=== PATIENT | female | born 1955 | race Caucasian/White ===

== ENCOUNTER 2016-11-21 15:19 | Emergency (ER) | payer MEDICARE, OTHER ==
[~2016-11-21] VITALS: Ht 160 cm; Wt 108.9 kg
--- OUTSIDE RECORDS SUMMARY | ~2016-11-21 | XMS ---
Demographics + + + | Address | [address] | | | [place] [address] | + + + | Preferred Language | Unknown | + + + | Marital Status | Unknown | + + + | Yazdanism Affiliation | Unknown | + + + | Race | Unknown | + + + | Ethnic Group | Unknown | + + + Author + + + | Author | [facility] | + + + | Organization | [facility] | + + + | Address | [address] | | | [place] [address] | + + + | Phone | | + + + Care Team Providers + + + + | Care Inker Machine Name | Role | Phone | + + + + Unavailable | Unavailable | + + + + PROBLEMS +---------+ + + +--------+ + + | Type | Condition | ICD9-CM | EBD25-VT | Onset | Condition | SNOMED | | | | Code | Code | Dates | Status | Code | +---------+ + + +--------+ + + | Problem | MG | G70.00 | | | Active | [id number] | | | (myastheni | | | | | 9103 | | | a gravis) | | | | | | +---------+ + + +--------+ + + | Problem | Difficulty | R41.840 | | | Active | 936387839 | | | | | | | | | | | concentrat | | | | | | | | ing | | | | | | +---------+ + + +--------+ + + | Problem | Memory | R41.3 | | | Active | 24302244 | | | loss | | | | | | +---------+ + + +--------+ + + | Problem | Eustachian | H69.80 | | | Active | 42427035 | | | tube | | | | | | | | dysfunctio | | | | | | | | n | | | | | | +---------+ + + +--------+ + + | Problem | Pharyngiti | | J02.9 | | Active | 938875762 | | | s | | | | | | +---------+ + + +--------+ + + | Problem | Screening | Z13.89 | | | Active | 703871029 | | | for | | | | | | | | alcoholism | | | | | | +---------+ + + +--------+ + + | Problem | Migraine | G43.009 | | | Active | 199944927 | | | headache | | | | | | | | without | | | | | | | | aura | | | | | | +---------+ + + +--------+ + + | Problem | Otalgia of | H92.02 | | | Active | [id number] | | | left ear | | | | | 426691 | +---------+ + + +--------+ + + | Problem | Unspecifie | | F79 | | Active | 84616243 | | | d | | | | | | | | intellectu | | | | | | | | al | | | | | | | | disabiliti | | | | | | | | es | | | | | | +---------+ + + +--------+ + + | Problem | Osteopenia | | M85.80 | | Active | 91180228 | +---------+ + + +--------+ + + | Problem | HTN | | I10 | | Active | 67575770 | | | (hypertens | | | | | | | | ion) | | | | | | +---------+ + + +--------+ + + | Problem | Varicositi | I83.93 | | | Active | 07743748 | | | es of leg | | | | | | +---------+ + + +--------+ + + | Problem | Brain | G06.0 | | | Active | 526014508 | | | abscess | | | | | | +---------+ + + +--------+ + + | 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 | D49.7 | | | Active | 749357720 | | | tumor | | | | | | +---------+ + + +--------+ + + ALLERGIES + + + + +--------+ | Substance | Reaction | Event Type | Date | Status | + + + + +--------+ | Clindamycin | hives | Drug Allergy | Oct, | Active | + + + + +--------+ | Penicillin | anaphylaxis | Drug Allergy | Oct, | Active | + + + + +--------+ | Metoprolol | bradycardia | Drug Allergy | Oct, | Active | | Succinate | | | | | + + + + +--------+ | Diovan | Hives | Non Drug | Oct, | Active | | | | Allergy | | | + + + + +--------+ SOCIAL HISTORY No smoking Hx information available PLAN OF CARE + +---------+ | Activity | Details | + +---------+ +---+ | | +---+ + + + | Follow Up | prn Reason:null | + + + VITAL SIGNS + + + + | Height | 65 in | 2016-11-20 | + + + + | Weight | 249.0 lbs | 2016-11-20 | + + + + | BMI | 41.43 kg/m2 | 2016-11-20 | + + + + | Temperature | 97.9 degrees Fahrenheit | 2016-11-20 | + + + + | Heart Rate | 93 /min | 2016-11-20 | + + + + | Blood pressure systolic | 158 mm Hg | 2016-11-20 | + + + + | Blood pressure diastolic | 101 mm Hg | 2016-11-20 | + + + + MEDICATIONS + + + + + + + +--------+ | Medicati | Instruct | Dosage | Frequenc | Start | End Date | Duration | Status | | on | ions | | y | Date | | | | + + + + + + + +--------+ | Vitamin | Orally | 1 tablet | 24h | | | | Active | | D3 1000 | Once a | | | | | | | | UNIT | day | | | | | | | + + + + + + + +--------+ | Folic | Orally | 1 tablet | 24h | | | | Active | | Acid 1 | Once a | | | | | | | | MG | day | | | | | | | + + + + + + + +--------+ | Amitript | Orally | 1 tablet | | | | | Active | | yline | QD for | at | | | | | | | HCl 50 | Myasthen | bedtime | | | | | | | MG | ia | | | | | | | + + + + + + + +--------+ | Omeprazo | Orally | 1 | 24h | | | | Active | | le 40 MG | Once a | capsule | | | | | | | | day | | | | | | | + + + + + + + +--------+ | Levothyr | Orally | 1 tablet | 24h | | | | Active | | oxine | Once a | on an | | | | | | | Sodium | day | empty | | | | | | | 75 MCG | | stomach | | | | | | | | | in the | | | | | | | | | morning | | | | | | + + + + + + + +--------+ | Sumatrip | Orally | 1 tablet | 12h | | | | Active | | contreras | Twice a | as | | | | | | | Succinat | day | needed | | | | | | | e 50 MG | | | | | | | | + + + + + + + +--------+ | Calcium | Orally | 1 tablet | 24h | | | | Active | | 1200-100 | Once a | | | | | | | | 0 | day | | | | | | | | MG-UNIT | | | | | | | | + + + + + + + +--------+ | Vitamin | | | | | | | Active | | B12 3000 | | | | | | | | | MCG/ML | | | | | | | | + + + + + + + +--------+ | Lisinopr | Orally | 1 tablet | 24h | 23 July, | | 30 | Active | | il 5 MG | Once a | | | 2017 | | day(s) | | | | day | | | | | | | + + + + + + + +--------+ | Gabapent | Orally | 1 | | | | | Active | | in 600 | TID for | capsule | | | | | | | MG | chronic | | | | | | | | | back | | | | | | | | | pain due | | | | | | | | | to | | | | | | | | | compress | | | | | | | | | ion | | | | | | | | | fracture | | | | | | | | | s | | | | | | | + + + + + + + +--------+ | Azathiop | Orally | 4 | 24h | | | | Active | | rine 50 | Once a | tablets | | | | | | | MG | day | | | | | | | + + + + + + + +--------+ | Bactrim | Orally | 1 tablet | 12h | Oct, | 1 Sep, | 10 | Active | | DS | Twice a | | | 2017 | 2017 | day(s) | | | 800-160 | day | | | | | | | | MG | | | | | | | | + + + + + + + +--------+ | Amlodipi | Orally | 1 tablet | 24h | | | | Active | | ne | Once a | | | | | | | | Besylate | day | | | | | | | | 5 MG | | | | | | | | + + + + + + + +--------+ RESULTS No Results PROCEDURES + + + + + | Procedure | Date Ordered | Related Diagnosis | Body Site | + + + + + | Office Visit, Est | Nov 20, 2016 | | | | Pt., Level 3 | | | | + + + + + IMMUNIZATIONS No Known Immunizations"
--- OUTSIDE RECORDS SUMMARY | ~2016-11-21 | XMS ---
Demographics + + + | Address | [address] | | | [place] [address] | + + + | Preferred Language | Unknown | + + + | Marital Status | Unknown | + + + | Yazidism Affiliation | Unknown | + + + | Race | Unknown | + + + | Ethnic Group | Unknown | + + + Author + + + | Author | [facility] | + + + | Organization | [facility] | + + + | Address | [address] | | | [place] [address] | + + + | Phone | | + + + Care Team Providers + + + + | Care Beef Specialist Name | Role | Phone | + + + + Unavailable | Unavailable | + + + + PROBLEMS +---------+ + + +--------+ + + | Type | Condition | ICD9-CM | TOT68-GU | Onset | Condition | SNOMED | | | | Code | Code | Dates | Status | Code | +---------+ + + +--------+ + + | Problem | MG | G70.00 | | | Active | [id number] | | | (myastheni | | | | | 9103 | | | a gravis) | | | | | | +---------+ + + +--------+ + + | Problem | Difficulty | R41.840 | | | Active | 321403315 | | | | | | | | | | | concentrat | | | | | | | | ing | | | | | | +---------+ + + +--------+ + + | Problem | Memory | R41.3 | | | Active | 80227567 | | | loss | | | | | | +---------+ + + +--------+ + + | Problem | Brain | G06.0 | | | Active | 440774319 | | | abscess | | | | | | +---------+ + + +--------+ + + | Problem | HTN | | I10 | | Active | 13646669 | | | (hypertens | | | | | | | | ion) | | | | | | +---------+ + + +--------+ + + | Problem | Varicositi | I83.93 | | | Active | 28215059 | | | es of leg | | | | | | +---------+ + + +--------+ + + | 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 | 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 | | | Active | 994531699 | | | tumor | | | | | | +---------+ + + +--------+ + + | Problem | Eustachian | H69.80 | | | Active | 22176678 | | | tube | | | | | | | | dysfunctio | | | | | | | | n | | | | | | +---------+ + + +--------+ + + | Problem | Pharyngiti | | J02.9 | | Active | 609971040 | | | s | | | | | | +---------+ + + +--------+ + + | Problem | Screening | Z13.89 | | | Active | 630527273 | | | for | | | | | | | | alcoholism | | | | | | +---------+ + + +--------+ + + | Problem | Migraine | G43.009 | | | Active | 135119310 | | | headache | | | | | | | | without | | | | | | | | aura | | | | | | +---------+ + + +--------+ + + | Problem | Otalgia of | H92.02 | | | Active | 4624486595 | | | left ear | | | | | 285571 | +---------+ + + +--------+ + + | Problem | Unspecifie | | F79 | | Active | 97622004 | | | d | | | [...] Clindamycin | hives | Drug Allergy | Aug, | Active | + + + + +--------+ | Penicillin | anaphylaxis | Drug Allergy | Aug, | Active | + + + + +--------+ | Metoprolol | bradycardia | Drug Allergy | Aug, | Active | | Succinate | | | | | + + + + +--------+ | Diovan | Hives | Non Drug | Aug, | Active | | | | Allergy | | | + + + + +--------+ SOCIAL HISTORY No smoking Hx information available PLAN OF CARE + +---------+ | Activity | Details | + +---------+ +---+ | | +---+ + + + | Follow Up | prn, 2 - 3 Days with your regular care | | | provider Reason:null | + + + | Pending Test | Throat Culture | + + + VITAL SIGNS + + + + | Height | 65 in | 2016-09-06 | + + + + | Weight | 246.0 lbs | 2016-09-06 | + + + + | BMI | 40.93 kg/m2 | 2016-09-06 | + + + + | Temperature | 97.1 degrees Fahrenheit | 2016-09-06 | + + + + | Heart Rate | 64 /min | 2016-09-06 | + + + + | Blood pressure systolic | 138 mm Hg | 2016-09-06 | + + + + | Blood pressure diastolic | 89 mm Hg | 2016-09-06 | + + + + MEDICATIONS + [...] | | | Active | | in 300 | TID for | capsule | | [...] + + + + + +--------+ | Ciprodex | Otic | 4 drops | 12h | | | 10 | Active | | 0.3-0.1 | Twice a | into | | | | day(s) | | | % | day | affected | | | | | | | | | ear | | | | | | + [...] | | | | | | HCl 25 | Myasthen | bedtime | | | [...] + + + + + +--------+ RESULTS + +--------+------+ + | Name | Result | Date | Reference Range | + +--------+------+ + | Strep Gp A Rapid | | | | | (IH) | | | | + +--------+------+ + PROCEDURES + + + + + | Procedure | Date Ordered | Related Diagnosis | Body Site | + + + + + | STREP A ASSAY | September 06, 2016 | | | | W/OPTIC | | | | + + + + + | Office Visit, Est | September 06, 2016 | | | | Pt., Level 4 | | | | + + + + + IMMUNIZATIONS No Known Immunizations"
--- OUTSIDE RECORDS SUMMARY | ~2016-11-21 | XMS ---
Demographics + + + | Address | [address] | | | [place] [address] | + + + | Preferred Language | Unknown | + + + | Marital Status | Unknown | + + + | Restorationism Affiliation | Unknown | + + + | Race | Unknown | + + + | Ethnic Group | Unknown | + + + Author + + + | Author | [facility] | + + + | Organization | [facility] | + + + | Address | [address] | | | [place] [address] | + + + | Phone | | + + + Care Team Providers + + + + | Care Cloth Neutralizer Name | Role | Phone | + + + + Unavailable | Unavailable | + + + + PROBLEMS +---------+ + + +--------+ + + | Type | Condition | ICD9-CM | LUH18-WA | Onset | Condition | SNOMED | | | | Code | Code | Dates | Status | Code | +---------+ + + +--------+ + + | Problem | MG | G70.00 | | | Active | [id number] | | | (myastheni | | | | | 9103 | | | a gravis) | | | | | | +---------+ + + +--------+ + + | Problem | Difficulty | R41.840 | | | Active | 870382486 | | | | | | | | | | | concentrat | | | | | | | | ing | | | | | | +---------+ + + +--------+ + + | Problem | Memory | R41.3 | | | Active | 56859167 | | | loss | | | | | | +---------+ + + +--------+ + + | Problem | Brain | G06.0 | | | Active | 877721159 | | | abscess | | | | | | +---------+ + + +--------+ + + | Problem | HTN | | I10 | | Active | 90103925 | | | (hypertens | | | | | | | | ion) | | | | | | +---------+ + + +--------+ + + | Problem | Varicositi | I83.93 | | | Active | 90156411 | | | es of leg | | | | | | +---------+ + + +--------+ + + | 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 | D49.7 | | | Active | 445950419 | | | tumor | | | | | | +---------+ + + +--------+ + + | Problem | Eustachian | H69.80 | | | Active | 86741309 | | | tube | | | | | | | | dysfunctio | | | | | | | | n | | | | | | +---------+ + + +--------+ + + | Problem | Pharyngiti | | J02.9 | | Active | 333958789 | | | s | | | | | | +---------+ + + +--------+ + + | Problem | Screening | Z13.89 | | | Active | 842155309 | | | for | | | | | | | | alcoholism | | | | | | +---------+ + + +--------+ + + | Problem | Migraine | G43.009 | | | Active | 576036895 | | | headache | | | | | | | | without | | | | | | | | aura | | | | | | +---------+ + + +--------+ + + | Problem | Otalgia of | H92.02 | | | Active | 3627898397 | | | left ear | | | | | 390550 | +---------+ + + +--------+ + + | Problem | Unspecifie | | F79 | | Active | 93887922 | | | d | | | | | | | | intellectu | | | | | | | | al | | | | | | | | disabiliti | | | | | | | | es | | | | | | +---------+ + + +--------+ + + ALLERGIES Unknown Allergies SOCIAL HISTORY No smoking Hx information available PLAN OF CARE VITAL SIGNS MEDICATIONS Unknown Medications RESULTS No Results PROCEDURES No Known procedures IMMUNIZATIONS No Known Immunizations"
--- OUTSIDE RECORDS SUMMARY | ~2016-11-21 | XMS ---
Demographics + + + | Address | [address] | | | [place] [address] | + + + | Preferred Language | Unknown | + + + | Marital Status | Unknown | + + + | Caodaism Affiliation | Unknown | + + + | Race | Unknown | + + + | Ethnic Group | Unknown | + + + Author + + + | Author | [facility] | + + + | Organization | [facility] | + + + | Address | [address] | | | [place] [address] | + + + | Phone | | + + + Care Team Providers + + + + | Care Transfer Man Name | Role | Phone | + + + + Unavailable | Unavailable | + + + + PROBLEMS +---------+ + + +--------+ + + | Type | Condition | ICD9-CM | OOG27-SB | Onset | Condition | SNOMED | | | | Code | Code | Dates | Status | Code | +---------+ + + +--------+ + + | Problem | HTN | | I10 | | Active | 69996712 | | | (hypertens | | | | | | | | ion) | | | | | | +---------+ + + +--------+ + + | 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 | D49.7 | | | Active | 374359415 | | | tumor | | | | | | +---------+ + + +--------+ + + | Problem | Varicositi | I83.93 | | | Active | 32577590 | | | es of leg | | | | | | +---------+ + + +--------+ + + | Problem | Brain | G06.0 | | | Active | 460027499 | | | abscess | | | | | | +---------+ + + +--------+ + + | Problem | Unspecifie | | F79 | | Active | 57839303 | | | d | | | | | | | | intellectu | | | | | | | | al | | | | | | | | disabiliti | | | | | | | | es | | | | | | +---------+ + + +--------+ + + | Problem | Screening | Z13.89 | | | Active | 467197802 | | | for | | | | | | | | alcoholism | | | | | | +---------+ + + +--------+ + + | Problem | Memory | R41.3 | | | Active | 51457143 | | | loss | | | | | | +---------+ + + +--------+ + + | Problem | MG | G70.00 | | | Active | 3898943331 | | | (myastheni | | | | | 9103 | | | a gravis) | | | | | | +---------+ + + +--------+ + + | Problem | Migraine | G43.009 | | | Active | 621457084 | | | headache | | | | | | | | without | | | | | | | | aura | | | | | | +---------+ + + +--------+ + + | Problem | Difficulty | R41.840 | | | Active | 012542618 | | | | | | | [...] Clindamycin | hives | Drug Allergy | July, | Active | + + + + +--------+ | Penicillin | anaphylaxis | Drug Allergy | July, | Active | + + + + +--------+ | Metoprolol | bradycardia | Drug Allergy | July, | Active | | Succinate | | | | | + + + + +--------+ | Diovan | Hives | Non Drug | July, | Active | | | | Allergy | | | + + + + +--------+ SOCIAL HISTORY No smoking Hx information available PLAN OF CARE + +---------+ | Activity | Details | + +---------+ +---+ | | +---+ + + + | Follow Up | 2 Months Reason:null | + + + VITAL SIGNS + + + + | Height | 65 in | 2016-08-21 | + + + + | Weight | 247 lbs | 2016-08-21 | + + + + | BMI | 41.10 kg/m2 | 2016-08-21 | + + + + | Temperature | 98.1 degrees Fahrenheit | 2016-08-21 | + + + + | Heart Rate | 91 /min | 2016-08-21 | + + + + | Blood pressure systolic | 150 mm Hg | 2016-08-21 | + + + + | Blood pressure diastolic | 99 mm Hg | 2016-08-21 | + + + + MEDICATIONS + [...] + + + + + +--------+ | Cortispo | External | 2-3 | 6h | 24 Aron, | | 10 | Active | | rin Otic | ly qid | drops | | 2016 | | day(s) | | | | | | | | | | | | 1.-0.35- | | | | | | | | | [address] | | | | | | | [...] + + | Office Visit, Est | August 21, 2016 | | | | Pt., Level 3 | | | | + + + + + | [facility] MED/CURRENT | August 21, 2016 | | | | MED MERGE | | | | + + + + + IMMUNIZATIONS No Known Immunizations"
[~2016-11-21 15:19] MED LIST: ACETAMINOPHEN-1 EAC1 PO; AMITRIPTYLINE H25 MG PO; AMITRIPTYLINE H50 MG PO; AMLODIPINE BESYL5 MG PO; AZASAN100 MG PO; AZATHIOPRINE50 MG PO; B12 5,000 MCG1 EACH SL; CALCIUM500 MG PO; CALCIUM600 MG PO; CALTRATE 600 +1 EAC1 PO; CEPHALEXIN500 MG PO; CHILDREN'S CHE1 EACH PO; COUMADIN2.5 MG PO; D3 DOTS2000 UNIT PO; DOXYCYCLINE HY100 M3 PO; ERGOCALCIF50000 UNIT PO; FLOMAX0.4 MG PO; FOLIC ACID1 MG PO; LASIX20 MG PO; LEVOTHYROXINE50 MCG PO; LISINOPRIL5 MG PO; MESTINON60 MG PO; METHOTREXATE2.5 MG PO; METOPROLOL SUCC50 MG PO; NEURONTIN600 MG PO; NORCO 5-325 TA1 EACH PO; OXYCODONE HCL5 MG PO; PERCOCET 5-3251 EACH PO; PRILOSEC40 MG PO; SERTRALINE HCL100 MG PO; SLO-NIACIN500 MG PO; SODIUM CHLORIDE1 GM PO; XARELTO20 MG PO; ZITHROMAX250 MG PO; ZOFRAN ODT4 MG PO; ZOFRAN4 MG PO
[2016-11-21] MEDS ORDERED: BACTRIM DS TAB1 EACH PO (16:27)
[2016-11-21] MEDS ORDERED: NORCO 7.5-3251 EACH PO (17:27)
[2016-11-21] MEDS ORDERED: KEFLEX500 MG PO (17:27)
== END 2016-11-21 18:10 | disposition home or self-care (01) ==
LOC: ED 15:19
DX: L03.115 Cellulitis of right lower limb (principal); L03.116 Cellulitis of left lower limb; I10 Essential (primary) hypertension; Z90.710 Acquired absence of both cervix and uterus; Z98.84 Bariatric surgery status; Z88.0 Allergy status to penicillin; Z88.1 Allergy status to other antibiotic agents; Z88.8 Allergy status to other drugs, medicaments and biological substances; Z79.899 Other long term (current) drug therapy
CPT/HCPCS: 80048; 81001; 83605; 85025; 87040; 87088; 96361; 96374; 99283; J0696; J7030

== ENCOUNTER 2017-09-09 14:32 | Emergency (ER) | payer MEDICARE, OTHER ==
[~2017-09-09] VITALS: Ht 160 cm; Wt 108.9 kg
[~2017-09-09 14:32] MED LIST changes: +BACTRIM DS TAB1 EACH PO; +KEFLEX500 MG PO; +NORCO 7.5-3251 EACH PO
[2017-09-09] MEDS ORDERED: METHYLPREDNISOLO4 M1 PO (16:01)
[2017-09-09] MEDS ORDERED: ONDANSETRON ODT8 MG PO (16:01)
[2017-09-09] MEDS ORDERED: ZITHROMAX250 MG PO (16:01)
== END 2017-09-09 16:27 | disposition home or self-care (01) ==
LOC: ED 14:32
DX: H83.09 Labyrinthitis, unspecified ear (principal); I10 Essential (primary) hypertension; Z88.0 Allergy status to penicillin; Z88.1 Allergy status to other antibiotic agents; Z88.6 Allergy status to analgesic agent; Z88.8 Allergy status to other drugs, medicaments and biological substances; Z79.899 Other long term (current) drug therapy
CPT/HCPCS: 70450; 80048; 85025; 96374; 96375; 99284; J1100; J2060; J2405

== ENCOUNTER 2017-10-07 10:38 | Emergency (ER) | payer MEDICARE, OTHER ==
[~2017-10-07] VITALS: Ht 160 cm; Wt 112.9 kg
[~2017-10-07 10:38] MED LIST changes: +METHYLPREDNISOLO4 M1 PO; +ONDANSETRON ODT8 MG PO
== END 2017-10-07 11:41 | disposition home or self-care (01) ==
LOC: ED 10:38
DX: I10 Essential (primary) hypertension (principal); E03.9 Hypothyroidism, unspecified
CPT/HCPCS: 93971; 99283

== ENCOUNTER 2018-06-05 13:11 | Emergency (ER) | payer MEDICARE, OTHER ==
[~2018-06-05] VITALS: Ht 160 cm; Wt 112.9 kg
--- OUTSIDE RECORDS SUMMARY | 2018-06-05 13:14 | XMS ---
PreManage Notification: DIMITRI HARVEY Security Etl Database Developer Events No recent Security Events currently on file CRITERIA MET - [facility] - Has Care Guidelines CARE PROVIDERS Mac James Current PHONE: Unknown Nik Pritchett Primary Care Current [place] PHONE: Unknown [facility] Current Orthopedic Surgery \T\ Fract[facility] PHONE: Unknown Stephanie has no Care Guidelines for this patient. Care History Medical/Surgical 10/08/2017 [facility] - Patient is currently established with [facility]. If patient is seen in the ED during business hours. Please contact [facility] at [facility] at Ext [phone]. Care Recommendation: This patient has had 5 or more Emergency Department visits in the last 12 months.\T\nbsp; Patient requires education on the scope and purpose of the ED as an acute care provider not a Primary Care Provider and should not be utilized for chronic conditions.\T\nbsp; If patient returns to ED please contact Community Health Worker Shelby at [phone]. These are guidelines and the provider should exercise clinical judgment when providing care. E.D. VISIT COUNT (12 MO.) 3 [facility] TOTAL 3 NOTE: Visits indicate total known visits. ED/C VISIT TRACKING (12 MO.) 06/05/2018 13:12 [facility] [place] TYPE: Emergency COMPLAINT: - CHEST PRESSURE/DIZZINESS 10/07/2017 10:38 [facility] [place] TYPE: Emergency COMPLAINT: - SWOLLEN L FOOT DIAGNOSES: - Allergy status to other antibiotic agents status - Allergy status to other drugs, medicaments and biological substances status - Other specified soft tissue disorders - Other intermodal owner operator truck driver (current) drug therapy - Hypothyroidism, unspecified - Allergy status to penicillin - prison (current) use of antibiotics - Pain in left leg - Essential (primary) hypertension 09/09/2017 14:33 [facility] [place] TYPE: Emergency COMPLAINT: - HEAD PAIN/DIZZY DIAGNOSES: - Other usp (current) drug therapy - Allergy status to analgesic agent status - Labyrinthitis, unspecified ear - Allergy status to penicillin - Allergy status to other drugs, medicaments and biological substances status - Allergy status to other antibiotic agents status - Essential (primary) hypertension - Headache INPATIENT VISIT TRACKING (12 MO.) No inpatient visits to display in this time frame [email or web address]
--- NOTE | 2018-06-05 17:47 | EKG ---
[facility] [address] [place], [place] [address] Signed Normal sinus rhythm Left axis deviation Low voltage QRS Cannot rule out Anterior infarct , age undetermined Inferior injury pattern ACUTE IN / STEMI Consider right ventricular involvement in acute inferior infarct Abnormal ECG No previous ECGs available Confirmed by NEERU BARNES DO ([id number]) on 06/05/2018 5:46:56 PM Electronically Signed By: NEERU BARNES DO 06/05/18 1747 PATIENT NAME: DIMITRI HARVEY TERESA Electrocardiogram DATE OF : 59 PHYSICIAN: NEERU BARNES DO REPORT #: [id number] REPORT IS CONFIDENTIAL AND NOT TO BE RELEASED WITHOUT AUTHORIZATION
== END 2018-06-05 13:58 | disposition short-term general hospital (02) ==
LOC: ED 13:11
DX: I21.3 ST elevation (STEMI) myocardial infarction of unspecified site (principal); I10 Essential (primary) hypertension; M32.9 Systemic lupus erythematosus, unspecified; G70.00 Myasthenia gravis without (acute) exacerbation; Z90.710 Acquired absence of both cervix and uterus; Z98.84 Bariatric surgery status; Z88.0 Allergy status to penicillin; Z88.1 Allergy status to other antibiotic agents; Z88.8 Allergy status to other drugs, medicaments and biological substances; Z79.899 Other long term (current) drug therapy
CPT/HCPCS: 71045; 80053; 84484; 85025; 85610; 85730; 93005; 93010; 96374; 96375; 99285-25; J1644; J2405; J3101; J7030

== ENCOUNTER 2020-09-07 15:11 | Emergency (ER) | payer MEDICARE, BC ==
[~2020-09-07] VITALS: Ht 160 cm; Wt 112.9 kg
--- NOTE | 2020-09-08 14:03 | EKG ---
[facility] [address] [place] [address] Signed Sinus tachycardia with frequent premature ventricular complexes Possible Left atrial enlargement Left axis deviation Low voltage QRS Septal infarct (cited on or before 05-JUN-2018) Possible Lateral infarct (cited on or before 05-JUN-2018) Abnormal ECG When compared with ECG of 05-JUN-2018 13:17, premature ventricular complexes are now present Questionable change in initial forces of Anteroseptal leads ST no longer elevated in Inferior leads ST now depressed in Lateral leads Confirmed by PROSPER DESHPANDE MD ([id number]) on 09/08/2020 2:03:19 PM Electronically Signed By: PROSPER DESHPANDE MD 09/08/20 1403 PATIENT NAME: DIMITRI HARVEY Electrocardiogram DATE OF : 59 PHYSICIAN: PROSPER DESHPANDE MD REPORT #: [id number] REPORT IS CONFIDENTIAL AND NOT TO BE RELEASED WITHOUT AUTHORIZATION
--- NOTE | 2020-09-08 14:03 | EKG ---
[facility] [address] [place] [address] Signed Normal sinus rhythm Possible Left atrial enlargement Left axis deviation Low voltage QRS Possible Anterolateral infarct (cited on or before 05-JUN-2018) Abnormal ECG When compared with ECG of 07-SEP-2020 15:14, (Unconfirmed) premature ventricular complexes are no longer present QT has shortened Confirmed by PROSPER DESHPANDE MD ([id number]) on 09/08/2020 2:03:38 PM Electronically Signed By: PROPSER DESHPANDE MD 09/08/20 1403 PATIENT NAME: DIMITRI HARVEY Electrocardiogram DATE OF : 59 PHYSICIAN: PROSPER DESHPANDE MD REPORT #: [id number] REPORT IS CONFIDENTIAL AND NOT TO BE RELEASED WITHOUT AUTHORIZATION
== END 2020-09-07 19:20 | disposition home or self-care (01) ==
LOC: ED 15:11
DX: R07.9 Chest pain, unspecified (principal); I10 Essential (primary) hypertension; Z88.0 Allergy status to penicillin; Z88.1 Allergy status to other antibiotic agents; Z88.8 Allergy status to other drugs, medicaments and biological substances; Z79.899 Other long term (current) drug therapy
CPT/HCPCS: 71045; 80053; 83735; 83880; 84484; 85025; 85379; 93005; 93010; 96374; 96375; 99285-25; J2270; J2405

== ENCOUNTER 2021-05-11 11:34 | Emergency (ER) | payer MEDICARE, BC ==
[~2021-05-11] VITALS: Ht 162.6 cm; Wt 97.5 kg
[2021-05-11] MEDS ORDERED: HYDROCORTISONE5 MG PO (11:55)
[2021-05-11] MEDS ORDERED: ELIQUIS5 MG PO (11:56)
[2021-05-11] MEDS ORDERED: ATORVASTATIN CA40 MG PO (11:56)
[2021-05-11] MEDS ORDERED: TOPIRAMATE25 MG PO (11:56)
[2021-05-11] MEDS ORDERED: CLOPIDOGREL75 MG PO (11:56)
[2021-05-11] MEDS ORDERED: VENTOLIN HFA18 GM INH (14:06)
[2021-05-11] MEDS ORDERED: BENZONATATE100 MG PO (14:06)
== END 2021-05-11 16:24 | disposition home or self-care (01) ==
LOC: ED 11:34
DX: U07.1 COVID-19 (principal); Z23 Encounter for immunization; I10 Essential (primary) hypertension; Z88.0 Allergy status to penicillin; Z88.8 Allergy status to other drugs, medicaments and biological substances; Z88.1 Allergy status to other antibiotic agents; Z79.899 Other long term (current) drug therapy
CPT/HCPCS: 71045; 99283-25; A9270; C9803; M0247; U0003

== ENCOUNTER 2021-07-14 18:03 | Emergency (ER) | payer MEDICARE, BC ==
[~2021-07-14] VITALS: Ht 162.6 cm; Wt 99.8 kg
[~2021-07-14 18:03] MED LIST changes: +ATORVASTATIN CA40 MG PO; +BENZONATATE100 MG PO; +CLOPIDOGREL75 MG PO; +ELIQUIS5 MG PO; +HYDROCORTISONE5 MG PO; +LEVOTHYROXINE100 MCG PO; +TOPIRAMATE25 MG PO; +TOPIRAMATE50 MG PO; +VENTOLIN HFA18 GM INH; +WARFARIN SODIUM5 MG PO
[2021-07-14] MEDS ORDERED: METOPROLOL TART25 MG PO (18:23)
[2021-07-14] MEDS ORDERED: PERCOCET 5-3251 EACH PO (22:25)
== END 2021-07-14 22:44 | disposition home or self-care (01) ==
LOC: ED 18:03
DX: R10.9 Unspecified abdominal pain (principal); I10 Essential (primary) hypertension; Z86.718 Personal history of other venous thrombosis and embolism; I25.2 Old myocardial infarction; Z88.0 Allergy status to penicillin; Z88.1 Allergy status to other antibiotic agents; Z88.8 Allergy status to other drugs, medicaments and biological substances; Z79.899 Other long term (current) drug therapy; Z79.01 Long term (current) use of anticoagulants
CPT/HCPCS: 36415; 74176; 80053; 81001; 83690; 85025; 85610; 96374; 96375; 96376; 99284-25; J1170; J2270; J2405; J7030

== ENCOUNTER 2024-02-02 12:44 | Emergency (ER) | payer OTHER, MEDICARE ==
[~2024-02-02] VITALS: Ht 162.6 cm; Wt 101.1 kg
[~2024-02-02 12:44] MED LIST changes: +ATORVASTATIN CA80 MG PO; +DULOXETINE HCL20 MG PO; +DULOXETINE HCL30 MG PO; +HYDROCODON-ACE1 EA10 PO; +LOW DOSE ASPIRI81 MG PO; +METOPROLOL SUCC25 MG PO; +METOPROLOL TART25 MG PO; +NITROGLYCERIN0.4 MG SL
[2024-02-02] MEDS ORDERED: OXYCODONE/APAP 5/325 TAB PO ONE (13:30)
[2024-02-02] MEDS ORDERED: PERCOCET 5-3251 EACH PO (15:51)
[2024-02-02 16:38] VITALS: BP 147/82
== END 2024-02-02 16:38 | disposition home or self-care (01) ==
LOC: ED 12:44
DX: S82.001A Unspecified fracture of right patella, initial encounter for closed fracture (principal); S80.02XA Contusion of left knee, initial encounter; I10 Essential (primary) hypertension; G70.00 Myasthenia gravis without (acute) exacerbation; I25.2 Old myocardial infarction; Z86.718 Personal history of other venous thrombosis and embolism; Z95.5 Presence of coronary angioplasty implant and graft; Z88.1 Allergy status to other antibiotic agents; Z88.0 Allergy status to penicillin; Z88.8 Allergy status to other drugs, medicaments and biological substances; Z88.6 Allergy status to analgesic agent; Z79.890 Hormone replacement therapy; Z79.01 Long term (current) use of anticoagulants; Z79.899 Other long term (current) drug therapy; W01.0XXA Fall on same level from slipping, tripping and stumbling without subsequent striking against object, initial encounter
CPT/HCPCS: 73030; 73560; 99283